=== PATIENT | female | born 1955 | race Caucasian/White ===

== ENCOUNTER 2019-11-15 13:58 | Outpatient (CLI) | payer MEDICARE, SELFPAY ==
[2019-11-15 15:32] LABS: Hematocrit 41.7 % (37.0-47.0); Hemoglobin 14.3 g/dL (12.0-15.0); Mean Corpuscular HGB Conc 34.3 g/dl (32-36); Mean Corpuscular Hemoglobin 30.2 pg (26-34); Mean Corpuscular Volume 88.2 fl (80-100); Mean Platelet Volume 10.9 fl (7.4-10.4); Platelet Count Result 238 k/mm3 (150-375); Red Blood Count 4.73 M/mm3 (4.2-5.4); Red Cell Distribution Width 12.1 % (11.5-14.5); White Blood Count 8.4 K/mm3 (4.5-10.0)
[2019-11-15 15:55] LABS: LDL Cholesterol Direct 112 mg/dL
[2019-11-15 16:15] LABS: Alanine Aminotransferase 64 U/L (4-35); Albumin Level 4.6 g/dL (3.5-5.1); Alkaline Phosphatase 98 U/L (38-126); Aspartate Amino Transferase 93 U/L (14-36); Bilirubin,Total 0.5 mg/dL (0.2-1.3); Blood Urea Nitrogen 19 mg/dL (7-17); Carbon Dioxide 23 mmol/L (22-30); Chloride 101 mmol/L (98-107); Cholesterol 255 mg/dL (0-200); Estimated Glomerular Filt Rate 50; Glucose 266 mg/dL (65-105); Potassium 4.3 mmol/L (3.4-5.0); Sodium 135 mmol/L (137-145)
[2019-11-15 16:30] LABS: Triglycerides 645 mg/dL (<150)
[2019-11-15 18:40] LABS: Hemoglobin A1C 9.2 % (<5.7)
== END 2019-11-15 13:59 | disposition home or self-care (01) ==
PROVIDERS: PCP Family Medicine; Visit Provider Family Medicine
DX: R53.83 Other fatigue (principal); L08.9 Local infection of the skin and subcutaneous tissue, unspecified; I10 Essential (primary) hypertension; E11.9 Type 2 diabetes mellitus without complications; E78.2 Mixed hyperlipidemia
CPT/HCPCS: 36415; 80053; 80061; 83036; 84443; 85027

== ENCOUNTER 2020-08-26 09:37 | Outpatient (CLI) | payer MEDICARE, SELFPAY ==
[2020-08-26 10:13] LABS: Hemoglobin A1C 7.1 % (<5.7)
[2020-08-26 10:18] LABS: Alanine Aminotransferase 48 U/L (4-35); Albumin Level 4.4 g/dL (3.5-5.1); Alkaline Phosphatase 55 U/L (38-126); Anion Gap 7 mmol/L (8-16); Aspartate Amino Transferase 51 U/L (14-36); Bilirubin,Total 0.4 mg/dL (0.2-1.3); Blood Urea Nitrogen 33 mg/dL (7-17); Calcium 9.9 mg/dL (8.4-10.2); Carbon Dioxide 27 mmol/L (22-30); Chloride 106 mmol/L (98-107); Cholesterol 223 mg/dL (0-200); Estimated Glomerular Filt Rate 45; Glucose 152 mg/dL (65-105); HDL Direct 29 mg/dL; Potassium 4.4 mmol/L (3.4-5.0); Sodium 140 mmol/L (137-145); Triglycerides 359 mg/dL (<150)
[2020-08-26 10:28] LABS: LDL Cholesterol Direct 138 mg/dL
== END 2020-08-26 09:38 | disposition home or self-care (01) ==
PROVIDERS: PCP Family Medicine; Visit Provider Family Medicine
DX: E78.2 Mixed hyperlipidemia (principal); E11.9 Type 2 diabetes mellitus without complications; Z79.4 Long term (current) use of insulin; I10 Essential (primary) hypertension
CPT/HCPCS: 36415; 80053; 80061; 83036

== ENCOUNTER 2021-01-06 15:58 | Outpatient (CLI) | payer MEDICARE, SELFPAY ==
[2021-01-06 16:32] LABS: Hemoglobin A1C 8.7 % (<5.7)
[2021-01-06 16:35] LABS: Alanine Aminotransferase 70 U/L (4-35); Albumin Level 4.8 g/dL (3.5-5.1); Alkaline Phosphatase 90 U/L (38-126); Anion Gap 12 mmol/L (8-16); Aspartate Amino Transferase 85 U/L (14-36); Bilirubin,Total 0.5 mg/dL (0.2-1.3); Blood Urea Nitrogen 27 mg/dL (7-17); Calcium 10.7 mg/dL (8.4-10.2); Carbon Dioxide 25 mmol/L (22-30); Chloride 99 mmol/L (98-107); Estimated Glomerular Filt Rate 50; Glucose 276 mg/dL (65-105); Potassium 5.4 mmol/L (3.4-5.0); Sodium 136 mmol/L (137-145)
== END 2021-01-06 15:59 | disposition home or self-care (01) ==
LOC: ANHLAB 16:01
PROVIDERS: PCP Family Medicine; Visit Provider Family Medicine
DX: E11.9 Type 2 diabetes mellitus without complications (principal); I10 Essential (primary) hypertension; Z79.4 Long term (current) use of insulin
CPT/HCPCS: 36415; 80053; 83036

== ENCOUNTER 2021-02-18 00:30 | Day surgery (SDC) | payer MEDICARE, SELFPAY ==
[2021-02-09 13:20] VITALS: BMI 40.3
[2021-02-18 09:14] VITALS: BP 176/79; PULSE 99; RESP 16; TEMP 36.4; O2SAT 95; BMI 39.5
--- NOTE | 2021-02-18 09:31 | WPDANESEPPF ---
Anes - Initial Pre Proc Eval Procedure: Operation Date: 02/18/21 10:00 Proposed Procedures p Screening Colonoscopy - Rodolfo London MD Date/Time: 02/18/21 09:31 Surgeon: Rodolfo London MD Pre Op Diagnosis: hx of colon polyps Patient Data Age: 65 Gender: F Height: 1.57 m Weight: 98 kg Last Vital Signs Temp 36.4 C 02/18/21 09:14 Pulse 99 02/18/21 09:14 Resp 16 02/18/21 09:14 BP 176/79 H 02/18/21 09:14 Pulse Ox 95 02/18/21 09:14 Allergies Allergy/AdvReac Type Severity Reaction Status Date / Time No Known Allergies Allergy Verified 02/18/21 09:12 Home Medications Medication Instructions Recorded Confirmed Type aspirin 325 mg tablet 325 mg PO DAILY 05/23/19 02/09/21 History cholecalciferol (vitamin D3) 100 4,000 unit PO DAILY #90 cap 09/26/19 02/09/21 Rx mcg (4,000 unit) capsule cyclobenzaprine 10 mg tablet 10 mg PO TID PRN #270 tablet 08/26/20 02/09/21 Rx pantoprazole 40 mg tablet,delayed 40 mg PO QAM #90 tablet 10/06/20 02/09/21 Rx release pen needle, diabetic 32 gauge x #100 each 10/29/20 Rx fenofibrate nanocrystallized 145 145 mg PO DAILY #90 tablet 11/10/20 02/09/21 Rx mg tablet meloxicam 15 mg tablet 15 mg PO DAILY #90 tablet 11/10/20 02/09/21 Rx lisinopril 10 mg tablet 10 mg PO DAILY #90 tablet 12/08/20 02/09/21 Rx blood sugar diagnostic See Rx Instructions .ROUTE 12/21/20 Rx .COMPLEX #300 strip gabapentin 300 mg capsule 300 mg PO DAILY #90 cap 01/04/21 02/09/21 Rx allopurinol 300 mg tablet 300 mg PO DAILY #90 tablet 01/29/21 02/09/21 Rx insulin glargine [Basaglar KwikPen 100 unit SUB-Q DAILY 02/09/21 02/18/21 History U-100 Insulin] mecobalamin (vitamin B12) 1,000 mcg PO DAILY 02/09/21 02/09/21 History omega-3 fatty acids [Fish Oil] 1,000 mg PO DAILY 02/09/21 02/09/21 History Patient hx anesthesia problems: none Family hx anesthesia problems: none PMFSH Past Medical History Medical History Colon polyp Diabetes mellitus with diabetic neuropathy Essential hypertension FH: colon cancer H/O: gout History of left breast cancer Lumbar disc disease Lymphedema of left upper extremity Obesity (BMI 30-39.9) Obstructive sleep apnea syndrome Other hyperlipidemia Type 2 diabetes mellitus without complication, with long-term current use of insulin Vision disturbance Vitamin deficiency, unspecified Surgical History Surgical History (Updated 01/07/21 @ 17:20 by Ericka Colon MD) History of mastectomy, total Family History Family History Sibling Hypertension Carcinoma of colon Father Family history of malignant neoplasm Family history of alcoholism Mother Family history of malignant neoplasm of brain Family history of malignant neoplasm of breast in first degree relative Social History Social History Years smoked: 58 Smoking status: Current every day smoker Tobacco type: cigarettes Second hand tobacco smoke exposure: No Alcohol intake: current Substance use: never Substance use type: does not use Living arrangements: alone Gender identity (if verbalized by the patient): Female Spiritual care concerns: No Anes - Eval Final PreProcedure Day of Procedure 02/18/21 09:31 Patient weight: obese Heart: regular rate and rhythm Lungs: clear to auscultation Airway: Mallampati scale class II Neurological: alert and oriented Last oral intake: >/= 8 hours ASA classification: III Emergent: no Anesthetic plan: proceed Anesthesia type and monitoring: general GIVS and standard monitoring Informed Consent: The patient's anesthetic plan and its attendant risks and benefits were discussed with the patient/family/POA. Questions were solicited and answers provided to the satisfaction of the patient/family/POA.
[2021-02-18 09:36] LABS: Glucose Point of Care 180 mg/dl (65-105)
[2021-02-18] MEDS: LACTATED RINGERS 1,000 ML 150 ML IV CONT (09:36)
--- NOTE | 2021-02-18 09:47 | PM.HPGS ---
History of Present Illness History of Present Illness Consent: Risks, benefits, and alternatives have been discussed and questions answered. Patient agrees to proceed with procedure. Chief complaint: hx of colon polyps Narrative: Penelope Lucio is a 65 year old female here for colon cancer screening. Review of Systems Review of Systems: All systems reviewed & are unremarkable except as noted in HPI and below PMFSH Past Medical History Medical History Colon polyp Diabetes mellitus with diabetic neuropathy Essential hypertension FH: colon cancer H/O: gout History of left breast cancer Lumbar disc disease Lymphedema of left upper extremity Obesity (BMI 30-39.9) Obstructive sleep apnea syndrome Other hyperlipidemia Type 2 diabetes mellitus without complication, with long-term current use of insulin Vision disturbance Vitamin deficiency, unspecified Surgical History Surgical History History of mastectomy, total Family History Family History Sibling Hypertension Carcinoma of colon Father Family history of malignant neoplasm Family history of alcoholism Mother Family history of malignant neoplasm of brain Family history of malignant neoplasm of breast in first degree relative Social History Social History Years smoked: 58 Smoking status: Current every day smoker Tobacco type: cigarettes Second hand tobacco smoke exposure: No Alcohol intake: current Substance use: never Substance use type: does not use Living arrangements: alone Gender identity (if verbalized by the patient): Female Spiritual care concerns: No Meds Home Medications and Allergies Home Medications Medication Instructions Recorded Confirmed Type aspirin 325 mg tablet 325 mg PO DAILY 05/23/19 02/09/21 History cholecalciferol (vitamin D3) 100 4,000 unit PO DAILY #90 cap 09/26/19 02/09/21 Rx mcg (4,000 unit) capsule cyclobenzaprine 10 mg tablet 10 mg PO TID PRN #270 tablet 08/26/20 02/09/21 Rx pantoprazole 40 mg tablet,delayed 40 mg PO QAM #90 tablet 10/06/20 02/09/21 Rx release pen needle, diabetic 32 gauge x #100 each 10/29/20 Rx fenofibrate nanocrystallized 145 145 mg PO DAILY #90 tablet 11/10/20 02/09/21 Rx mg tablet meloxicam 15 mg tablet 15 mg PO DAILY #90 tablet 11/10/20 02/09/21 Rx lisinopril 10 mg tablet 10 mg PO DAILY #90 tablet 12/08/20 02/09/21 Rx blood sugar diagnostic See Rx Instructions .ROUTE 12/21/20 Rx .COMPLEX #300 strip gabapentin 300 mg capsule 300 mg PO DAILY #90 cap 01/04/21 02/09/21 Rx allopurinol 300 mg tablet 300 mg PO DAILY #90 tablet 01/29/21 02/09/21 Rx insulin glargine [Basaglar KwikPen 100 unit SUB-Q DAILY 02/09/21 02/18/21 History U-100 Insulin] mecobalamin (vitamin B12) 1,000 mcg PO DAILY 02/09/21 02/09/21 History omega-3 fatty acids [Fish Oil] 1,000 mg PO DAILY 02/09/21 02/09/21 History Allergies Allergy/AdvReac Type Severity Reaction Status Date / Time No Known Allergies Allergy Verified 02/18/21 09:12 Vital Signs Vital Signs - 24 hr 02/18/21 09:14 Temperature 36.4 C Pulse Rate 99 Respiratory Rate 16 Blood Pressure 176/79 H Pulse Oximetry 95 Exam Resp: Auscultation: clear to auscultation bilaterally Cardio: Rate: regular rate Rhythm: regular rhythm GI: GI Palp: Yes Soft to palpation and No Tenderness to palpation present (GI) Assessment and Plan Assessment and plan (1) FH: colon cancer: Code(s): Z80.0 - Family history of malignant neoplasm of digestive organs Status: Acute Assessment and Plan: Colonoscopy with possible biopsy or polypectomy or cautery or injection of substances.
--- NOTE | 2021-02-18 10:22 | SUR.OPER ---
PREPARED TO HOT SNARE POLYP, DECIDED AGAINST. NO ELECTROCAUTERY USED.
[2021-02-18 10:24] VITALS: BP 94/53; PULSE 93; RESP 24; O2SAT 98
[2021-02-18 10:34] VITALS: BP 112/50; PULSE 91; RESP 22; O2SAT 98
[2021-02-18 10:38] LABS: Glucose Point of Care 189 mg/dl (65-105)
[2021-02-18 10:44] VITALS: BP 126/71; PULSE 93; RESP 24; O2SAT 95
== END 2021-02-18 11:10 | disposition home or self-care (01) ==
PROVIDERS: PCP Family Medicine; Visit Provider Internal Medicine Gastroenterology
PROC: 0DJD8ZZ Inspection of Lower Intestinal Tract, Via Natural or Artificial Opening Endoscopic (ICD-10-PCS; CPT 45378; principal; 2021-02-18 10:00)
DX: Z12.11 Encounter for screening for malignant neoplasm of colon (principal); K62.1 Rectal polyp; K63.5 Polyp of colon; K57.30 Diverticulosis of large intestine without perforation or abscess without bleeding; Z80.0 Family history of malignant neoplasm of digestive organs; Z79.82 Long term (current) use of aspirin; Z79.4 Long term (current) use of insulin; E11.40 Type 2 diabetes mellitus with diabetic neuropathy, unspecified; I10 Essential (primary) hypertension; G47.33 Obstructive sleep apnea (adult) (pediatric); E78.5 Hyperlipidemia, unspecified; Z85.3 Personal history of malignant neoplasm of breast; M51.36 Other intervertebral disc degeneration, lumbar region; E66.9 Obesity, unspecified; Z68.39 Body mass index [BMI] 39.0-39.9, adult; F17.210 Nicotine dependence, cigarettes, uncomplicated
CPT/HCPCS: 45380; 82948; 88305; J2704; J7120

== ENCOUNTER 2021-06-11 12:53 | Outpatient (CLI) | payer MEDICARE, SELFPAY ==
[2021-06-11 14:10] LABS: Alanine Aminotransferase 49 U/L (4-35); Albumin Level 4.6 g/dL (3.5-5.1); Alkaline Phosphatase 77 U/L (38-126); Anion Gap 10 mmol/L (8-16); Aspartate Amino Transferase 45 U/L (14-36); Bilirubin,Total 0.4 mg/dL (0.2-1.3); Blood Urea Nitrogen 23 mg/dL (7-17); Carbon Dioxide 23 mmol/L (22-30); Chloride 101 mmol/L (98-107); Cholesterol 255 mg/dL (0-200); Estimated Glomerular Filt Rate > 60; Glucose 203 mg/dL (65-110); HDL Direct 29 mg/dL; Potassium 4.4 mmol/L (3.4-5.0); Sodium 134 mmol/L (137-145); Triglycerides 408 mg/dL (<150)
[2021-06-11 14:21] LABS: LDL Cholesterol Direct 146 mg/dL
[2021-06-11 14:23] LABS: Hemoglobin A1C 7.8 % (<5.7)
== END 2021-06-11 12:54 | disposition home or self-care (01) ==
PROVIDERS: PCP Family Medicine; Visit Provider Family Medicine
DX: E11.9 Type 2 diabetes mellitus without complications (principal); I10 Essential (primary) hypertension; E78.2 Mixed hyperlipidemia
CPT/HCPCS: 36415; 80053; 80061; 83036

== ENCOUNTER 2021-10-26 12:00 | Outpatient (CLI) | payer MEDICARE, SELFPAY ==
[2021-10-26 14:17] LABS: Alanine Aminotransferase 49 U/L (4-35); Albumin Level 4.2 g/dL (3.5-5.1); Alkaline Phosphatase 57 U/L (38-126); Anion Gap 8 mmol/L (8-16); Aspartate Amino Transferase 56 U/L (14-36); Bilirubin,Total 0.4 mg/dL (0.2-1.3); Blood Urea Nitrogen 22 mg/dL (7-17); Calcium 9.2 mg/dL (8.4-10.2); Carbon Dioxide 23 mmol/L (22-30); Chloride 106 mmol/L (98-107); Cholesterol 246 mg/dL (0-200); Estimated Glomerular Filt Rate 55; Glucose 133 mg/dL (65-110); HDL Direct 29 mg/dL; Potassium 4.3 mmol/L (3.4-5.0); Sodium 137 mmol/L (137-145); Triglycerides 327 mg/dL (<150)
[2021-10-26 14:29] LABS: LDL Cholesterol Direct 138 mg/dL
[2021-10-26 14:42] LABS: Hemoglobin A1C 6.3 % (<5.7)
== END 2021-10-26 12:01 | disposition home or self-care (01) ==
PROVIDERS: PCP Family Medicine; Visit Provider Physician Assistant
DX: E78.5 Hyperlipidemia, unspecified (principal); E11.9 Type 2 diabetes mellitus without complications; I10 Essential (primary) hypertension
CPT/HCPCS: 36415; 80053; 80061; 83036

== ENCOUNTER 2022-05-26 14:04 | Outpatient (CLI) | payer MEDICARE, SELFPAY ==
[2022-05-26 14:25] LABS: Basophils Absolute Auto 0.1 K/mm3 (0.0-0.1); Basophils Percent Auto 0.9 % (0.2-1.2); Eosinophils Absolute Auto 0.4 K/mm3 (0-0.3); Eosinophils Percent Auto 5.6 % (0-4.4); Hematocrit 41.8 % (37.0-47.0); Hemoglobin 13.8 g/dL (12.0-15.0); Immature Granulocyte Absolute 0.08 K/mm3 (0.00-0.031); Immature Granulocyte Percent A 1.1 % (0-0.5); Lymphocytes Absolute Auto 2.05 K/mm3 (0.9-3.2); Lymphocytes Percent Auto 29.3 % (18.3-44.2); Mean Corpuscular Hemoglobin 30.3 pg (26-34); Mean Corpuscular Volume 91.9 fl (80-100); Mean Platelet Volume 10.7 fl (7.4-10.4); Monocytes Absolute Auto 0.4 K/mm3 (0.1-0.6); Monocytes Percent Auto 6.3 % (2.6-8.5); Neutrophils Percent Auto 56.8 % (45.5-73.1); Platelet Count Result 161 k/mm3 (150-375); Red Blood Count 4.55 M/mm3 (4.2-5.4); Red Cell Distribution Width 13.1 % (11.5-14.5)
[2022-05-26 14:37] LABS: Alanine Aminotransferase 58 U/L (6-35); Albumin Level 4.3 g/dL (3.5-5.1); Alkaline Phosphatase 61 U/L (38-126); Anion Gap 5 mmol/L (8-16); Aspartate Amino Transferase 71 U/L (14-36); Bilirubin,Total 0.3 mg/dL (0.2-1.3); Blood Urea Nitrogen 23 mg/dL (7-17); Calcium 9.2 mg/dL (8.4-10.2); Carbon Dioxide 27 mmol/L (22-30); Chloride 105 mmol/L (98-107); Cholesterol 225 mg/dL (0-200); Estimated Glomerular Filt Rate 50; Glucose 177 mg/dL (65-110); HDL Direct 29 mg/dL; Potassium 4.6 mmol/L (3.4-5.0); Sodium 137 mmol/L (137-145); Triglycerides 365 mg/dL (<150)
[2022-05-26 14:46] LABS: Creatinine Urine 54.8 mg/dL
[2022-05-26 14:48] LABS: LDL Cholesterol Direct 119 mg/dL
[2022-05-26 14:54] LABS: MALB Creatinine Ratio < 10.9 mg/g (0-30); Microalbumin Urine Random < 6.0 mg/L (0-16.7)
[2022-05-26 14:58] LABS: Hemoglobin A1C 7.1 % (<5.7)
== END 2022-05-26 14:05 | disposition home or self-care (01) ==
LOC: ANHLAB 14:06
PROVIDERS: PCP Family Medicine; Visit Provider Family Medicine
DX: R53.83 Other fatigue (principal); E11.9 Type 2 diabetes mellitus without complications; E78.2 Mixed hyperlipidemia
CPT/HCPCS: 36415; 80053; 80061; 82043; 83036; 85025

== ENCOUNTER 2022-08-13 14:04 | Outpatient (CLI) | payer MEDICARE, SELFPAY ==
--- NOTE | ~2022-08-13 | XR_ITS ---
EXAMINATION: XR chest 2V 08/13/2022 14:37 INDICATION: Cough. PROCEDURE: 2 view chest COMPARISON: 09/08/2016 FINDINGS: The lungs are clear. The cardiomediastinal silhouette is within normal limits. There are no pleural effusions. There is no pneumothorax suspected. There is a calcified granuloma in the rig ht mid thorax. IMPRESSION: 1: NO ACUTE CARDIOPULMONARY DISEASE. Reviewed, dictated and finalized at location A. N PAINTER
--- NOTE | ~2022-08-13 | XR_ITS ---
EXAMINATION: XR abdomen obstructive series DATE: 08/13/2022 14:36 INDICATION: Unspecified abdominal pain TECHNIQUE: Supine and upright views of the abdomen. FINDINGS: 05/01/2014 The visualized lung parenchyma is normal.. There is a nonobstructive bowel gas pattern. Gas and stool are seen throughout the colon to the level of the rectum. There is no free air. IMPRESSION: 1. No acute abdominal abnormality. Reviewed, dictated and finalized at location A. L CARRIER
[2022-08-13 13:46] LABS: Influenza A QL RT-PCR Negative (Negative); Influenza B QL RT-PCR Negative (Negative); RSV RNA, RT-PCR Negative (Negative); SARS-CoV-2 RNA PCR Negative
[2022-08-13 14:32] LABS: Hematocrit 42.4 % (37.0-47.0); Hemoglobin 14.4 g/dL (12.0-15.0); Mean Corpuscular Hemoglobin 30.2 pg (26-34); Mean Corpuscular Volume 88.9 fl (80-100); Platelet Count Result 153 k/mm3 (150-375); Red Blood Count 4.77 M/mm3 (4.2-5.4); Red Cell Distribution Width 12.8 % (11.5-14.5); White Blood Count 9.2 K/mm3 (4.5-10.0)
[2022-08-13 14:34] LABS: Appearance Urine Slightly Cloudy (Clear); Bilirubin Urine 1+ (Negative); Blood Urine Trace-lysed (Negative); Color Urine Yellow (Yellow); Glucose Urine UA Negative (Negative); Ketones Urine Negative (Negative); Leukocyte Esterase Ur 1+ LEU/UL (Negative); Nitrate Urine Negative (Negative); Protein Urine 2+ mg/dL (Negative); Specific Grav Ur 1.025 (1.001-1.035); Urobilinogen Urine 0.2 mg/dL (<2.0); pH Urine 5.5 (5.0-9.0)
[2022-08-13 14:40] LABS: Mucus Urine Few /lpf; Squamous Epithelial Cell Urine Rare /hpf (Few); WBC Urine >75 /hpf
[2022-08-13 14:45] LABS: Alanine Aminotransferase 48 U/L (6-35); Albumin Level 4.6 g/dL (3.5-5.1); Alkaline Phosphatase 72 U/L (38-126); Anion Gap 10 mmol/L (8-16); Aspartate Amino Transferase 43 U/L (14-36); Bilirubin,Total 0.8 mg/dL (0.2-1.3); Blood Urea Nitrogen 20 mg/dL (7-17); Calcium 9.4 mg/dL (8.4-10.2); Carbon Dioxide 25 mmol/L (22-30); Chloride 100 mmol/L (98-107); Estimated Glomerular Filt Rate 37; Glucose 108 mg/dL (65-110); Lipase 36 U/L (23-300); Potassium 4.2 mmol/L (3.4-5.0); Sodium 135 mmol/L (137-145)
[2022-08-13 14:46] LABS: Add Urine Microscopic? YES
== END 2022-08-13 14:05 | disposition home or self-care (01) ==
PROVIDERS: Physician Assistant; PCP Family Medicine; Visit Provider Family Medicine
DX: J06.9 Acute upper respiratory infection, unspecified (principal); R10.9 Unspecified abdominal pain; R05.9 Cough, unspecified
CPT/HCPCS: 36415; 71046; 74019; 80053; 81001; 83690; 85027; 87086; 87637

== ENCOUNTER 2022-10-26 14:32 | Outpatient (CLI) | payer MEDICARE, SELFPAY ==
[2022-10-26 16:36] LABS: Alanine Aminotransferase 51 U/L (6-35); Albumin Level 4.3 g/dL (3.5-5.1); Alkaline Phosphatase 58 U/L (38-126); Anion Gap 8 mmol/L (8-16); Aspartate Amino Transferase 58 U/L (14-36); Bilirubin,Total 0.5 mg/dL (0.2-1.3); Blood Urea Nitrogen 26 mg/dL (7-17); Calcium 9.7 mg/dL (8.4-10.2); Carbon Dioxide 25 mmol/L (22-30); Chloride 105 mmol/L (98-107); Estimated Glomerular Filt Rate 55; Glucose 167 mg/dL (65-110); Sodium 138 mmol/L (137-145)
[2022-10-26 17:00] LABS: Hemoglobin A1C 7.8 % (<5.7)
== END 2022-10-26 14:33 | disposition home or self-care (01) ==
LOC: ANHLAB 14:35
PROVIDERS: PCP Family Medicine; Visit Provider Family Medicine
DX: E11.9 Type 2 diabetes mellitus without complications (principal)
CPT/HCPCS: 36415; 80053; 83036

== ENCOUNTER 2022-12-18 10:15 | Outpatient (CLI) | payer MEDICARE, SELFPAY ==
--- NOTE | ~2022-12-18 | DEXA_ITS ---
Bone Density Report Name: EUSEBIA GUEVARA Age: 67 Sex: Female Ethnicity: White Date of : 1955 Indication: postmenopausal; screening for osteoporosis; prior fracture; cancer; hysterectomy; Referring Provider: MARGARET LINDSEY Study: Bone densitometry was performed. Exam Date: December 18, 2022 Accession number: [id number] Bone Density: Region BMD T-score Z-score Classification AP Spine(L1-L4) 1.046 0.0 2.0 Normal Femoral Neck (Left) 0.721 -1.2 0.6 Osteopenia Total Hip (Left) 1.029 0.7 2.1 Normal Femoral Neck (Right) 0.719 -1.2 0.5 Osteopenia Total Hip (Right) 0.997 0.4 1.9 Normal Total Hip Mean 1.013 0.6 2.0 Normal World Health Organization criteria for BMD impression classify patients as: Normal (T-score at or above -1.0), Osteopenia (T-score between -1.0 and -2.5), or Osteoporosis (T-score at or below -2.5). 10-year Fracture Risk(1): Major Osteoporotic Fracture 13% Hip Fracture 2.1% Reported Risk Factors: [place] (), Neck BMD=0.719, BMI=38.9, previous fracture, smoking (1) FRAX(R) Version 3.08. Fracture probability calculated for an untreated patient. Fracture probability may be lower if the patient has received treatment. Clinical Information Provided by Patient: Has had a low trauma fracture Smokes Has used the following medications: Vitamin D Has the following medical conditions: Cancer, Hysterectomy Patient maximum height was 62 Menopause Age: 54 No regular weight bearing exercise Drinks caffeinated beverages Onset of menses at age 11 Number of children 0 Impression: The patient has low bone mass, based on the Left Femoral Neck T-score. The patient has an estimated ten-year risk of hip fracture of 2.1% and an estimated ten-year risk of major fracture of 13%, based on the WHO FRAX algorithm. The patient has risk factors, including: smoking, previous fracture. Discussion: BONE DENSITY IS LOW AT ONE OR MORE SKELETAL SITES. This patient's lowest T-score is low at one or more skeletal sites. It meets the World Health Organization's (WHO) criteria for ?low bone mass? (T-score between -1.0 and -2.5). The patient's 10-year risk of fracture as calculated by FRAX is less than the threshold where pharmacological therapy is recommended by the National Osteoporosis Foundation (NOF). However, all treatment decisions require clinical judgment and consideration of individual patient factors, including patient preferences, comorbidities, previous drug use, risk factors not captured in the FRAX model (e.g., frailty, falls, vitamin D deficiency, increased bone turnover, interval significant decline in bone density) and possible under or overestimation of fracture risk by FRAX. The patient should follow a healthful lifestyle (good nutrition with adequate calcium and vitami
== END 2022-12-18 10:16 | disposition home or self-care (01) ==
LOC: ANHIMG 10:17
PROVIDERS: PCP Family Medicine; Visit Provider Family Medicine
DX: Z78.0 Asymptomatic menopausal state (principal); M85.852 Other specified disorders of bone density and structure, left thigh; M85.851 Other specified disorders of bone density and structure, right thigh
CPT/HCPCS: 77080

== ENCOUNTER 2023-05-11 15:13 | Outpatient (CLI) | payer MEDICARE, SELFPAY ==
[2023-05-11 16:12] LABS: Basophils Percent Auto 0.7 % (0.2-1.2); Eosinophils Absolute Auto 0.3 K/mm3 (0-0.3); Eosinophils Percent Auto 4.5 % (0-4.4); Hematocrit 41.1 % (37.0-47.0); Hemoglobin 13.3 g/dL (12.0-15.0); Immature Granulocyte Absolute 0.04 K/mm3 (0.00-0.031); Immature Granulocyte Percent A 0.7 % (0-0.5); Lymphocytes Absolute Auto 1.88 K/mm3 (0.9-3.2); Lymphocytes Percent Auto 31.5 % (18.3-44.2); Mean Corpuscular HGB Conc 32.4 g/dl (32-36); Mean Corpuscular Hemoglobin 29.2 pg (26-34); Mean Corpuscular Volume 90.3 fl (80-100); Mean Platelet Volume 11.4 fl (7.4-10.4); Monocytes Absolute Auto 0.4 K/mm3 (0.1-0.6); Monocytes Percent Auto 6.5 % (2.6-8.5); Neutrophils Absolute Auto 3.4 K/mm3 (1.3-6.7); Neutrophils Percent Auto 56.1 % (45.5-73.1); Platelet Count Result 144 k/mm3 (150-375); Red Blood Count 4.55 M/mm3 (4.2-5.4); Red Cell Distribution Width 12.8 % (11.5-14.5)
[2023-05-11 16:18] LABS: Appearance Urine Clear (Clear); Bacteria Urine None Seen /hpf; Bilirubin Urine Negative (Negative); Blood Urine Negative (Negative); Color Urine Yellow (Yellow); Glucose Urine UA Negative (Negative); Ketones Urine Negative (Negative); Leukocyte Esterase Ur 2+ LEU/UL (Negative); Nitrate Urine Negative (Negative); Non Pathogenic Casts 0-2; Protein Urine Negative (Negative); RBC Urine 0-2 /hpf (0-2); Specific Grav Ur 1.015 (1.001-1.035); Squamous Epithelial Cell Urine None seen /hpf (Few); pH Urine 6.5 (5.0-9.0)
[2023-05-11 16:26] LABS: Add Urine Microscopic? YES
[2023-05-11 16:31] LABS: Alanine Aminotransferase 50 U/L (6-35); Albumin Level 4.3 g/dL (3.5-5.1); Alkaline Phosphatase 63 U/L (38-126); Anion Gap 12 mmol/L (8-16); Aspartate Amino Transferase 59 U/L (14-36); Bilirubin,Total 0.4 mg/dL (0.2-1.3); Blood Urea Nitrogen 27 mg/dL (7-17); Calcium 9.7 mg/dL (8.4-10.2); Carbon Dioxide 22 mmol/L (22-30); Chloride 105 mmol/L (98-107); Cholesterol 193 mg/dL (0-200); Estimated Glomerular Filt Rate > 60; Glucose 205 mg/dL (65-110); HDL Direct 31 mg/dL; Potassium 4.4 mmol/L (3.4-5.0); Sodium 139 mmol/L (137-145); Triglycerides 340 mg/dL (<150)
[2023-05-11 16:42] LABS: LDL Cholesterol Direct 104 mg/dL
[2023-05-11 17:01] LABS: Hemoglobin A1C 6.7 % (<5.7)
[2023-05-11 17:47] LABS: Hepatitis C Virus Antibody Negative (Negative)
== END 2023-05-11 15:14 | disposition home or self-care (01) ==
PROVIDERS: PCP Family Medicine; Visit Provider Family Medicine
DX: E78.2 Mixed hyperlipidemia (principal); R31.9 Hematuria, unspecified; E11.9 Type 2 diabetes mellitus without complications; R53.83 Other fatigue; Z11.59 Encounter for screening for other viral diseases; Z85.3 Personal history of malignant neoplasm of breast
CPT/HCPCS: 36415; 80053; 80061; 81001; 83036; 84443; 85025; 86803; 87086; 87088

== ENCOUNTER 2023-12-28 11:15 | Outpatient (CLI) | payer MEDICARE, SELFPAY ==
[2023-12-28 11:49] LABS: Basophils Percent Auto 0.6 % (0.2-1.2); Eosinophils Absolute Auto 0.2 K/mm3 (0-0.3); Eosinophils Percent Auto 3.1 % (0-4.4); Hematocrit 41.2 % (37.0-47.0); Hemoglobin 13.7 g/dL (12.0-15.0); Immature Granulocyte Absolute 0.06 K/mm3 (0.00-0.031); Immature Granulocyte Percent A 0.8 % (0-0.5); Lymphocytes Absolute Auto 2.43 K/mm3 (0.9-3.2); Mean Corpuscular HGB Conc 33.3 g/dl (32-36); Mean Corpuscular Hemoglobin 29.8 pg (26-34); Mean Corpuscular Volume 89.6 fl (80-100); Mean Platelet Volume 10.9 fl (7.4-10.4); Monocytes Absolute Auto 0.5 K/mm3 (0.1-0.6); Monocytes Percent Auto 6.6 % (2.6-8.5); Neutrophils Absolute Auto 3.9 K/mm3 (1.3-6.7); Neutrophils Percent Auto 54.9 % (45.5-73.1); Platelet Count Result 150 k/mm3 (150-375); Red Cell Distribution Width 12.6 % (11.5-14.5); White Blood Count 7.1 K/mm3 (4.5-10.0)
[2023-12-28 12:02] LABS: Alanine Aminotransferase 55 U/L (6-35); Albumin Level 4.5 g/dL (3.5-5.1); Alkaline Phosphatase 63 U/L (38-126); Anion Gap 8 mmol/L (4-12); Aspartate Amino Transferase 62 U/L (14-36); Bilirubin,Total 0.4 mg/dL (0.2-1.3); Blood Urea Nitrogen 23 mg/dL (7-17); Calcium 9.6 mg/dL (8.4-10.2); Carbon Dioxide 25 mmol/L (22-30); Chloride 105 mmol/L (98-107); Cholesterol 194 mg/dL (0-200); Estimated Glomerular Filt Rate 49; Glucose 173 mg/dL (65-110); HDL Direct 33 mg/dL; Potassium 4.4 mmol/L (3.4-5.0); Sodium 138 mmol/L (137-145); Triglycerides 375 mg/dL (<150)
[2023-12-28 12:13] LABS: LDL Cholesterol Direct 110 mg/dL
[2023-12-28 12:19] LABS: Hemoglobin A1C 7.9 % (<5.7)
[2023-12-28 12:53] LABS: MALB Creatinine Ratio < 10.7 mg/g (0-30); Microalbumin Urine Random < 6.0 mg/L (0-16.7)
[2023-12-28 13:00] LABS: Vitamin D 25 Hydroxy 41.9 ng/mL
[2023-12-28 13:49] LABS: Free T4 Free Thyroxine Reflex 1.48 ng/dL (0.78-2.19)
[2023-12-28 14:38] LABS: Total Triiodothyronine (T3) 1.36 NG/ML (0.97-1.69)
== END 2023-12-28 11:16 | disposition home or self-care (01) ==
LOC: ANHLAB 11:18
PROVIDERS: PCP Family Medicine; Visit Provider Family Medicine
DX: D69.6 Thrombocytopenia, unspecified (principal); R53.83 Other fatigue; E78.2 Mixed hyperlipidemia; E11.9 Type 2 diabetes mellitus without complications; E55.9 Vitamin D deficiency, unspecified
CPT/HCPCS: 36415; 80053; 80061; 82043; 82306; 83036; 84439; 84443; 84480; 85025

== ENCOUNTER 2024-07-23 15:42 | Outpatient (CLI) | payer MEDICARE, SELFPAY ==
--- OUTSIDE RECORDS SUMMARY | 2024-07-23 16:28 | XMS_ITS | Referral Summary ---
Author Organization [facility] Address [address] [place] [address] Care Team Providers Care Metal Box Maker Name Role Phone Ericka Colon MD Primary Care Provider [phone] Source Comments [facility],non-[facility] Affiliates and Associated Physician Practices is amultiple site organization consisting of ambulatory clinics and hospital sitesin [place], [place], [place] and [place]. This disclosure is being madepursuant to the Care Everywhere program and may not contain all information available regarding this patient. Last updated 18.[facility] Social History Tobacco Use Types Packs/Day Years Used Date Smoking Tobacco: Never Assessed Sex and Gender Information Value Date Recorded Sex Assigned at Not on file Gender Identity Not on file Sexual Orientation Not on file Plan of Treatment Not on file Care Teams Metal Box Maker Relationship Specialty Start Date End Date Ericka Colon MD [address] [place] [address] PCP - General 09/16/16
--- OUTSIDE RECORDS SUMMARY | 2024-07-23 16:28 | XMS_ITS | Patient Health Summary ---
Author Organization [facility] Address [address] [place] [address] Care Team Providers Care Coo & Co Founder Name Role Phone Ericka Colon MD Primary Care Provider [phone] Note from [facility],non-owned Affiliates and Associated Physician Practices is amultiple site organization consisting of ambulatory clinics and hospital sitesin [place], [place], [place] and [place]. This disclosure is being madepursuant to the Care Everywhere program and may not contain all information available regarding this patient. Last updated 18.[facility] Social History Tobacco Use Types Packs/Day Years Used Date Smoking Tobacco: Never Assessed Sex and Gender Information Value Date Recorded Sex Assigned at Not on file Gender Identity Not on file Sexual Orientation Not on file Procedures * MRI BREAST BILAT [facility] CONTRAST(Performed 05/03/2013) * CREATININE BLOOD - POCT (IP) [facility](Performed 05/03/2013) Results * MRI BREAST BILAT [facility]WO CONTRAST (05/03/2013 12:29 PM DIABETES CLINICAL MANAGER) Anatomical Region Laterality Modality Breast Bilateral Other Addenda Addendum by Yehuda Gongora MD on 05/10/2013 4:24 PM DIABETES CLINICAL MANAGER ADDENDUM: An addendum is being issued to this original report, as the formal pathology report from [facility] has now been made available. The pathology report from the left breast lumpectomy is reported invasive ductal carcinoma, moderately differentiated. The lumpectomy specimen also demonstrated positive margins on its superior, deep, and inferior aspects. 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 All imaging findings from the original report have been described below and are unchanged with the following exception. The small nodular enhancing components of the rim of the lumpectomy site/seroma (predominantly along its medial, posterior, and inferior aspects) likely represent residual tumor, given the additional information provided in this pathology report. Postoperative changes may also give this appearance, but are thought to be less likely. Historical Provider MR ORDERABLES * (ABNORMAL) CREATININE BLOOD - POCT (IP) [facility] (05/03/2013) Creatinine POCT 1.57(A) 0.3 - 1.3 mg/dL [facility] eGFR POCT 36(A) 60 ml/min [facility] 05/03/2013 Mariaelena Aceves MD LAB - POINT OF CA RE ORDERABLES [facility] Care Teams Coo & Co Founder Relationship Specialty Start Date End Date Ericka Colon MD [address] [place] [address] PCP - General 09/16/16
--- OUTSIDE RECORDS SUMMARY | 2024-07-23 16:28 | XMS_ITS | Clinical Summary ---
Author Organization [facility] [[email or web address]] [facility] Address [address] [place] [address] Phone Care Team Providers Care Field Machinist Name Role Phone Ericka Colon MD Primary Care Provider [phone] Jevon Colindres MD Unavailable [phone] Allergies No known active allergies Medications meloxicam (MOBIC) 15 mg tablet [address] (PROTONIX) 40 mg EC tablet 2017 Active cyclobenzaprine (FLEXERIL) 5 mg tablet 07/12/2017Cyclobenzapri ne hcl, po solid 5 mg TabletPOPRNCurrent Medication 2017 Active tamoxifen (NOLVADEX) 20 mg tablet 07/12/2017Tamoxifen citrate, po solid 20 mg TabletTAKE 1 TABLET DAILYContinue 2017 Active allopurinol (ZYLOPRIM) 300 mg tablet 07/12/2017Allopurinol, po solid 300 mg TabletTAKE 1 TABLET BY MOUTH DAILY11/22/2013Continue 2013 Active omega 6-rfg-vbm-fish oil (FISH OIL) 100-160-1,000 mg capsule 07/12/2017Fish oil, po solid 300-1000mg CapsulePOdailyCurrent Medication 2017 Active fenofibrate nanocrystallized (TRICOR,TRIGLIDE) 145 mg tablet 2017 Active gabapentin (NEURONTIN) 300 mg capsule Take 300 mg by mouth 3 (three) times a day. Acti ve vit D3-vit U-ehofruych-pswz [id number] nhjn-uud-mp-mg tablet Take by mouth. Activ e Malina EdwardsSanto U-100 Insulin 100 unit/mL (3 mL) insulin pen INJECT 30 UNITS SUBCUTANEOS DAILY 2019 Active diclofenac sodium 1.5 % drops APPLY 40 DROPS TOPICALLY QID TO AFFECTED KNEE 2019 Active Active Problems Problem Noted Date Diagnosed Date Malignant neoplasm of breast 07/08/2015 Ankle swelling 07/08/2015 Muscle pain 07/08/2015 Joint swelling 07/08/2015 Thoracic root lesion 07/08/2015 Chest pain 07/08/2015 Chest wall pain 07/08/2015 Knee pain 07/08/2015 Pain of lower extremity 07/08/2015 Notalgia 07/08/2015 Chronic pain 07/08/2015 Immunizations Name Administration Dates Next Due Influenza, Trivalent, High D ose, Split, Preservative Free, Intramuscular 07/18/2019 Influenza, Unspecified 04/10/2018 Tdap 02/09/2016 ZOSTER LIVE 05/29/2015 Surgical History Surgery Date Site/Laterality Comments BREAST RECONSTRUCTION Breast Reconstruction With Implant Prosthesis - (Added by TW Conv) IN MASTECTOMY SIMPLE COMPLETE Extended Simple Mastectomy - (Added by TW Conv) IN INJ LUMBAR/SACRAL,W/WO CNTRST Corticosteroid Injection Interlaminar Approach Lumbar - (Added by TW Conv) HYSTERECTOMY OOPHORECTOMY COLONOSCOPY Medical History Medical History Date Comments Breast cancer (HCC) Social History Tobacco Use Types Packs/Day Years Used Date Smoking Tobacco: Every Day Cigarettes 0.5 50 Smokeless Tobacco: Never Tobacco Cessation:Ready to Q uit: No; Counseling Given: Yes Alcohol Use Standard Drinks/Week Comments Not Currently 0 (1 standard drink = 0.6 oz pur e alcohol) Personal Safety Answer Date Recorded Getting School Help Needed Not on file 09/08 Comments Unknown Sex and Gender Information Value Date Recorded Sex Assigned at Not on file Legal Sex Female 8:19 PM NURSERY HAND Gender Identity Not on file Sexual Orientation Not on file Obstetrics History Last Filed Vital Signs Vital Sign Reading Time Taken Comments Blood Pressure 97/67 01/10/2020 1:57 PM CDT Pulse 93 01/10/2020 1:57 PM CDT Temperature 36.9 ??C (98.5 ??F) 01/10/2020 1:57 PM CD T Respiratory Rate 18 01/10/2020 1:57 PM CDT Oxygen Saturation 97% 01/10/2020 1:57 PM CDT Inhaled Oxygen Concentration - - Weight 96.6 kg (213 lb) 01/10/2020 1:57 PM CDT Height 157.5 cm (5' 2 ) 01/10/2020 1:57 PM CDT Body Mass Index 38.96 01/10/2020 1:57 PM CDT Plan of Treatment Not on file Insurance AET MEDICARE Care Teams Field Machinist Relationship Specialty Start Date End Date Ericka Colon MD PCP - General Family Medicine 04/11/18 Jevon Colindres MD Medical Oncologist/Stock Grader Hematology and Oncology 10/05/18
--- OUTSIDE RECORDS SUMMARY | 2024-07-23 16:28 | XMS_ITS | Referral Summary ---
Author Organization [facility] Address [address] [place] [address] Phone Care Team Providers Care Coil Winding Machines Set Up Mechanic Name Role Phone Ericka Colon MD Primary Care Provider [phone] Jevon Colindres MD Unavailable [phone] Allergies No known active allergies Medications [...] TABLET BY MOUTH DAILY11/22/2013Continue 2013 Active omega 8-ljd-emr-fish oil (FISH OIL) 100-160-1,000 mg capsule 07/12/2017Fish oil, po solid 300-1000mg CapsulePOdailyCurrent Medication 2017 Active fenofibrate nanocrystallized (TRICOR,TRIGLIDE) 145 mg tablet 2017 Active gabapentin (NEURONTIN) 300 mg capsule Take 300 mg by mouth 3 (three) times a day. Acti ve vit D3-vit Y-pqatsippx-vvsj [id number] dcre-fgr-rv-mg tablet Take by mouth. Activ e Malina Albarran U-100 Insulin 100 unit/mL (3 mL) insulin [...] Unspecified 04/10/2018 Tdap 02/09/2016 ZOSTER LIVE 05/29/2015 Social History Tobacco Use Types Packs/Day Years [...] on file Legal Sex Female 8:19 PM ASSISTANT CHIEF OF POLICE Gender Identity Not on file Sexual Orientation Not on file Last Filed Vital Signs Vital Sign Reading [...] Plan of Treatment Not on file Insurance [employer] MEDICARE Care Teams Coil Winding Machines Set Up Mechanic Relationship Specialty Start Date End Date Ericka Colon MD PCP - General Family Medicine 04/11/18 Jevon Colindres MD Medical Oncologist/Teletype Installer Hematology and Oncology 10/05/18
--- OUTSIDE RECORDS SUMMARY | 2024-07-23 16:28 | XMS_ITS | Clinical Summary ---
Author Organization [facility] Address [address] [place] [address] Care Team Providers Care Tennis Court Attendant Name Role Phone Ericka Colon MD Primary Care Provider [phone] Source Comments [facility],non-owned Affiliates and Associated Physician Practices is amultiple site organization consisting of ambulatory clinics and hospital sitesin [place], [place], [place] and [place]. This disclosure is being madepursuant to the Care Everywhere program and may not contain all information available regarding this patient. Last updated 18.[facility] [employer] Social History Tobacco Use Types Packs/Day Years Used Date Smoking Tobacco: Never Assessed Sex and Gender Information Value Date Recorded Sex Assigned at Not on file Gender Identity Not on file Sexual Orientation Not on file Plan of Treatment Health Maintenance Due Date Last Done Comments BONE DENSITY TESTING 1955 COLOGUARD (AGES 45-75) - COL ON CA SCREENING 1955 COLON MONITORING 1955 COLONOSCOPY - COLON CA SCREENING 1955 CT COLONOGRAPHY - COLON CA SCREENING 1955 Colorectal Cancer Screening 1955 FIT - COLON CA SCREENING 1955 FLEX SIG - COLON CA SCREENING 1955 LIPID TESTING 1955 MAMMOGRAM 1955 HEPATITIS C SCREENING 05/31/1972 DTAP/TDAP/TD VACCINES (1 - Tdap) 1973 PNEUMOCOCCAL VACCINE 50+ (1 of 1 - PCV) 2004 ZOSTER VACCINE (1 of 2) 2004 COVID-19 VACCINE ( - 2023-2 5 season) 2024 INFLUENZA VACCINE (#1) 2024 DEPRESSION SCREENING 06/27/2024 Respiratory Syncytial Virus (RSV) Vaccine Pt: or over 60 yrs (1 - 1-dose 75+ series) 2029 HEPATITIS B VACCINE Aged Out No longe r eligible based on patient's age to complete this topic HIB VACCINE Aged Out No longer eligi ble based on patient's age to complete this topic HPV VACCINE Aged Out No longer eligi ble based on patient's age to complete this topic MENINGOCOCCAL (Group B) VACCINE Aged Out No longer eligible based on patient's age to complete this topic MENINGOCOCCAL VACCINE Aged Out No tres manuela eligible based on patient's age to complete this topic Care Teams Tennis Court Attendant Relationship Specialty Start Date End Date Ericka Colon MD [address] [place] [address] PCP - General 09/16/16
[2024-07-23 16:31] LABS: Basophils Absolute Auto 0.1 K/mm3 (0.0-0.1); Basophils Percent Auto 0.9 % (0.2-1.2); Eosinophils Absolute Auto 0.3 K/mm3 (0-0.3); Eosinophils Percent Auto 4.2 % (0-4.4); Hematocrit 41.8 % (37.0-47.0); Hemoglobin 14.2 g/dL (12.0-15.0); Immature Granulocyte Absolute 0.05 K/mm3 (0.00-0.031); Immature Granulocyte Percent A 0.8 % (0-0.5); Immature Platelet Fraction Pct 6.4 % (0.9-11.2); Lymphocytes Absolute Auto 1.86 K/mm3 (0.9-3.2); Lymphocytes Percent Auto 28.7 % (18.3-44.2); Mean Corpuscular Hemoglobin 29.8 pg (26-34); Mean Corpuscular Volume 87.8 fl (80-100); Mean Platelet Volume 11.3 fl (7.4-10.4); Monocytes Absolute Auto 0.4 K/mm3 (0.1-0.6); Neutrophils Absolute Auto 3.9 K/mm3 (1.3-6.7); Neutrophils Percent Auto 59.4 % (45.5-73.1); Platelet Count Result 127 k/mm3 (150-375); Red Blood Count 4.76 M/mm3 (4.2-5.4); Red Cell Distribution Width 12.3 % (11.5-14.5); White Blood Count 6.5 K/mm3 (4.5-10.0)
[2024-07-23 16:50] LABS: Alanine Aminotransferase 53 U/L (6-35); Albumin Level 4.2 g/dL (3.5-5.1); Alkaline Phosphatase 72 U/L (38-126); Anion Gap 13 mmol/L (4-12); Aspartate Amino Transferase 58 U/L (14-36); Bilirubin,Total 0.7 mg/dL (0.2-1.3); Blood Urea Nitrogen 16 mg/dL (7-17); Calcium 9.4 mg/dL (8.4-10.2); Carbon Dioxide 23 mmol/L (22-30); Chloride 101 mmol/L (98-107); Cholesterol 211 mg/dL (0-200); Estimated Glomerular Filt Rate > 60; Glucose 208 mg/dL (65-110); HDL Direct 31 mg/dL; Potassium 4.8 mmol/L (3.4-5.0); Sodium 137 mmol/L (137-145); Triglycerides 379 mg/dL (<150)
[2024-07-23 17:01] LABS: LDL Cholesterol Direct 111 mg/dL
[2024-07-23 17:40] LABS: Hemoglobin A1C 8.5 % (<5.7)
[2024-07-23 23:13] LABS: Free T4 Free Thyroxine Reflex 1.46 ng/dL (0.78-2.19)
[2024-07-24 00:18] LABS: Total Triiodothyronine (T3) 1.36 NG/ML (0.97-1.69)
== END 2024-07-23 15:43 | disposition home or self-care (01) ==
LOC: ANHLAB 15:42
PROVIDERS: PCP Family Medicine; Visit Provider Family Medicine
DX: E78.2 Mixed hyperlipidemia (principal); Z00.00 Encounter for general adult medical examination without abnormal findings; E03.9 Hypothyroidism, unspecified; R74.8 Abnormal levels of other serum enzymes; N18.30 Chronic kidney disease, stage 3 unspecified; R53.83 Other fatigue; E11.9 Type 2 diabetes mellitus without complications
CPT/HCPCS: 36415; 80048; 80061; 80076; 83036; 84439; 84443; 84480; 85025; 85055

== ENCOUNTER 2024-08-15 13:57 | Outpatient (CLI) | payer MEDICARE, SELFPAY ==
--- OUTSIDE RECORDS SUMMARY | 2024-08-15 14:02 | XMS_ITS | Patient Health Summary ---
Author Organization [facility] Address [address] [place] [address] Care Team Providers Care Contract Modeler Name Role Phone Ericka Colon MD Primary Care Provider [phone] Note from [facility],non-owned Affiliates and Associated Physician Practices is amultiple site organization consisting of ambulatory clinics and hospital sitesin [place], [place], [place] and [place]. This disclosure is being madepursuant to the Care Everywhere program and may not contain all information available regarding this patient. Last updated 18.[facility] Social History Tobacco Use Types Packs/Day Years Used Date Smoking Tobacco: Never Assessed Sex and Gender Information Value Date Recorded Sex Assigned at Not on file Gender Identity Not on file Sexual Orientation Not on file Procedures * MRI BREAST BILAT WWO CONTRAST(Performed 05/03/2013) * CREATININE BLOOD - POCT (IP) [facility](Performed 05/03/2013) Results * MRI BREAST BILAT WWO CONTRAST (05/03/2013 12:29 PM CORRECTIONAL CAPTAIN) Anatomical Region Laterality Modality Breast Bilateral Other Addenda Addendum by Yehuda Gongora MD on 05/10/2013 4:24 PM CORRECTIONAL CAPTAIN ADDENDUM: An addendum is being issued to this original report, as the formal pathology report from [facility] has now been made available. The pathology [...] * (ABNORMAL) CREATININE BLOOD - POCT (IP) [facility] (05/03/2013) Creatinine POCT 1.57(A) 0.3 - 1.3 mg/dL [facility] eGFR POCT 36(A) 60 ml/min [facility] 05/03/2013 Mariaelena Aceves MD LAB - POINT OF CA RE ORDERABLES [facility] Care Teams Contract Modeler Relationship Specialty Start Date End Date Ericka Colon MD [address] [place] [address] PCP - General 09/16/16
--- OUTSIDE RECORDS SUMMARY | 2024-08-15 14:02 | XMS_ITS | Referral Summary ---
Author Organization [facility] Address [address] [place] [address] Care Team Providers Care Toe Stapler Name Role Phone Ericka Colon MD Primary Care Provider [phone] Source Comments [facility] Affiliates and Associated Physician Practices is amultiple site organization consisting of ambulatory clinics and hospital sitesin [place], [place], [place] and [place]. This disclosure is being madepursuant to the [...] of Treatment Not on file Care Teams Toe Stapler Relationship Specialty Start Date End Date Ericka Colon MD [address] [place] [address] PCP - General 09/16/16
--- OUTSIDE RECORDS SUMMARY | 2024-08-15 14:02 | XMS_ITS | Clinical Summary ---
Author Organization [facility] Address [address] [place] [address] Care Team Providers Care Equipment Processer Storage Name Role Phone Ericka Colon MD Primary Care Provider [phone] Source Comments [facility],non-owned Affiliates and Associated Physician Practices is amultiple site organization consisting of ambulatory clinics and hospital sitesin [place], [place], [place] and [place]. This disclosure is being madepursuant to the Care Everywhere program and may not contain all information available regarding this patient. Last updated 18.[facility] [employer] Social History Tobacco Use Types Packs/Day Years [...] age to complete this topic Care Teams Equipment Processer Storage Relationship Specialty Start Date End Date Ericka Colon MD [address] [place] [address] PCP - General 09/16/16
[2024-08-15 15:26] LABS: Iron 77 ug/dL (37-170)
[2024-08-15 15:35] LABS: Percent Iron Saturation 18 % (20-50)
[2024-08-15 15:58] LABS: Hepatitis B Surface Antigen Negative (Negative)
[2024-08-15 16:04] LABS: HAV RESULT Negative (Negative); Hepatitis B Core IgM Result Negative (Negative)
[2024-08-15 16:16] LABS: Hepatitis C Virus Antibody Negative (Negative)
[2024-08-17 05:23] LABS: Hepatitis A Antibody Total REACTIVE (NON-REACTIVE)
[2024-08-17 15:32] LABS: Immunoglobulin A 265 mg/dL (70-320); TTG IGA AB <1.0 U/mL
[2024-08-18 23:03] LABS: Actin Antibody (IgG) <20 U (<20)
[2024-08-19 02:57] LABS: Alpha-1-Antitrypsin, QN 176 mg/dL (83-199); Ceruloplasmin 25 mg/dL (14-48)
[2024-08-20 08:38] LABS: Alpha Fetoprotein Tumor Marker 5.8 ng/mL
== END 2024-08-15 13:58 | disposition home or self-care (01) ==
LOC: ANHLAB 13:59
PROVIDERS: PCP Family Medicine; Visit Provider Nurse Practitioner
DX: K74.60 Unspecified cirrhosis of liver (principal); R74.8 Abnormal levels of other serum enzymes; K75.81 Nonalcoholic steatohepatitis (NASH)
CPT/HCPCS: 36415; 80074; 82103; 82105; 82390; 82728; 82784; 83540; 83550; 86038; 86039; 86364; 86708

== ENCOUNTER 2024-09-03 07:56 | Outpatient (CLI) | payer MEDICARE, SELFPAY ==
--- NOTE | ~2024-09-03 | US_ITS ---
Limited ABDOMINAL ULTRASOUND (Doppler ultrasound interrogation techniques used as needed for this exa m.) Ordering provider: Odessa Kelly APRN History: . possible cirrhosis, check hepatic vasculature as w . Comparison: None. FINDINGS: PANCREAS: Normal echotexture and size. PORTAL VEIN: Hepatopedal flow demonstrated. LIVER: Normal size and increased echotexture. The liver measures 16.3 cm. Anechoic lesion seen in the left lobe measuring 0.7 x 0.7 x 0.6 cm most likely a cyst. Otherwise, No focal hepatic lesions or pe rihepatic fluid collections are identified. BILIARY DUCTS: No intra or extrahepatic biliary dilation. Common bile duct measures 2.8 mm in diamete r which is normal for patient's age. GALLBLADDER: Cholelithiasis. Stone measures 1 x 1 x 0.4 cm. No sludge, gallbladder wall thickening or pericholecystic fluid. The wall thickness is 1.5 mm. Negative sonographic Fulton's sign. FREE FLUID: None visualized within the upper abdomen. IMPRESSION: Fat infiltration of the liver. Cholelithiasis. Otherwise, normal limited abdominal ultrasound. Reviewed, dictated and finalized at location A. IMPRESSION: Fat infiltration of the liver. Cholelithiasis. Otherwise, normal limited abdomi nal ultrasound.
--- OUTSIDE RECORDS SUMMARY | 2024-09-03 08:06 | XMS_ITS | Referral Summary ---
Author Organization [facility] Address [address] [place] [address] Care Team Providers Care Mold Sheet Cleaner Name Role Phone Ericka Colon MD Primary Care Provider [phone] Source Comments [facility],non-[facility] Affiliates and Associated Physician Practices is amultiple site organization consisting of ambulatory clinics and hospital sitesin [place], [place], [place] and [place]. This disclosure is being madepursuant to the Care Everywhere program and may not contain all information available regarding this patient. Last updated 18.[facility] Social History Tobacco Use Types Packs/Day Years Used Date Smoking Tobacco: Never Assessed Sex and Gender Information Value Date Recorded Sex Assigned at Not on file Gender Identity Not on file Sexual Orientation Not on file Plan of Treatment Not on file Care Teams Mold Sheet Cleaner Relationship Specialty Start Date End Date Ericka Colon MD [address] [place] [address] PCP - General 09/16/16
--- OUTSIDE RECORDS SUMMARY | 2024-09-03 08:06 | XMS_ITS | Referral Summary ---
Author Organization [facility] Address [address] [place] [address] Phone Care Team Providers Care Condemnation Engineer Name Role Phone Ericka Colon MD Primary Care Provider [phone] Jevon Colindres MD Unavailable [phone] Allergies No known active allergies Medications [...] TABLET BY MOUTH DAILY11/22/2013Continue 2013 Active omega 8-bnn-mfs-fish oil (FISH OIL) 100-160-1,000 mg capsule 07/12/2017Fish oil, po solid 300-1000mg CapsulePOdailyCurrent Medication 2017 Active fenofibrate nanocrystallized (TRICOR,TRIGLIDE) 145 mg tablet 2017 Active gabapentin (NEURONTIN) 300 mg capsule Take 300 mg by mouth 3 (three) times a day. Acti ve vit D3-vit Z-ivkxvhezq-gotl [phone] vrbo-mms-yx-mg tablet Take by mouth. 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 Gender Identity Not on file Sexual Orientation Not on file Last Filed Vital Signs Vital Sign Reading Time Taken Comments Blood Pressure 97/67 01/10/2020 1:57 PM CDT Pulse 93 01/10/2020 1:57 PM CDT Temperature 36.9 C (98.5 F) 01/10/2020 1:57 PM CDT Respiratory Rate 18 01/10/2020 1:57 PM CDT Oxygen Saturation 97% 01/10/2020 1:57 PM CDT Inhaled Oxygen Concentration - - Weight 96.6 kg (213 lb) 01/10/2020 1:57 PM CDT Height 157.5 cm (5' 2 ) 01/10/2020 1:57 PM CDT Body Mass Index 38.96 01/10/2020 1:57 PM CDT Plan of Treatment Not on file Insurance [employer] MEDICARE Care Teams Condemnation Engineer Relationship Specialty Start Date End Date Ericka Colon MD PCP - General Family Medicine 04/11/18 Jevon Colindres MD Medical Oncologist/Measurer Machine Hematology and Oncology 10/05/18
--- OUTSIDE RECORDS SUMMARY | 2024-09-03 08:06 | XMS_ITS | Patient Health Summary ---
Author Organization [facility] Address [address] [place] [address] Care Team Providers Care Steam Turbine Assembler Name Role Phone Ericka Colon MD Primary Care Provider [phone] Note from [facility],non-owned Affiliates and Associated Physician Practices is amultiple site organization consisting of ambulatory clinics and hospital sitesin [place], [place], [place] and [place]. This disclosure is being madepursuant to the Care Everywhere program and may not contain all information available regarding this patient. Last updated 18.[facility] Social History Tobacco Use Types Packs/Day Years Used Date Smoking Tobacco: Never Assessed Sex and Gender Information Value Date Recorded Sex Assigned at Not on file Gender Identity Not on file Sexual Orientation Not on file Procedures * MRI BREAST BILAT WWO CONTRAST(Performed 05/03/2013) * CREATININE BLOOD - POCT (IP) [facility](Performed 05/03/2013) Results * MRI BREAST BILAT WWO CONTRAST (05/03/2013 12:29 PM TUBE OPERATOR) Anatomical Region Laterality Modality Breast Bilateral Other Addenda Addendum by Yehuda Gongora MD on 05/10/2013 4:24 PM TUBE OPERATOR ADDENDUM: An addendum is being issued to this original report, as the formal pathology report from [facility] has now been made available. The [...] * (ABNORMAL) CREATININE BLOOD - POCT (IP) [facility] (05/03/2013) Creatinine POCT 1.57(A) 0.3 - 1.3 mg/dL [facility] eGFR POCT 36(A) 60 ml/min [facility] 05/03/2013 Mariaelena Aceves MD LAB - POINT OF CA RE ORDERABLES [facility] Care Teams Steam Turbine Assembler Relationship Specialty Start Date End Date Ericka Colon MD [address] [place] [address] PCP - General 09/16/16
--- OUTSIDE RECORDS SUMMARY | 2024-09-03 08:06 | XMS_ITS | Clinical Summary ---
Author Organization [facility] Address [address] [place] [address] Phone Care Team Providers Care Bias Cutter Helper Name Role Phone Ericka Colon MD Primary Care Provider [phone] Jevon Colindres MD Unavailable [phone] Allergies No known active allergies Medications [...] TABLET BY MOUTH DAILY11/22/2013Continue 2013 Active omega 7-zzi-sez-fish oil (FISH OIL) 100-160-1,000 mg capsule 07/12/2017Fish oil, po solid 300-1000mg CapsulePOdailyCurrent Medication 2017 Active fenofibrate nanocrystallized (TRICOR,TRIGLIDE) 145 mg tablet 2017 Active gabapentin (NEURONTIN) 300 mg capsule Take 300 mg by mouth 3 (three) times a day. Acti ve vit D3-vit Z-vbfigemau-ftoy [phone] xcpm-dpo-re-mg tablet Take by mouth. 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
--- OUTSIDE RECORDS SUMMARY | 2024-09-03 08:06 | XMS_ITS | Clinical Summary ---
Author Organization [facility] Address [address] [place] [address] Care Team Providers Care Record Producer Name Role Phone Ericka Colon MD Primary Care Provider [phone] Source Comments [facility],non-owned Affiliates and Associated Physician Practices is amultiple site organization consisting of ambulatory clinics and hospital sitesin [place], [place], [place] and [place]. This disclosure is being madepursuant to the Care Everywhere program and may not contain all information available regarding this patient. Last updated 18.[facility] Social History Tobacco Use Types Packs/Day Years [...] age to complete this topic Care Teams Record Producer Relationship Specialty Start Date End Date Ericka Colon MD [address] [place] [address] PCP - General 09/16/16
== END 2024-09-03 07:57 | disposition home or self-care (01) ==
PROVIDERS: PCP Family Medicine; Visit Provider Nurse Practitioner
DX: R74.8 Abnormal levels of other serum enzymes (principal); K76.0 Fatty (change of) liver, not elsewhere classified; K80.20 Calculus of gallbladder without cholecystitis without obstruction
CPT/HCPCS: 76705

== ENCOUNTER 2025-01-29 15:44 | Outpatient (CLI) | payer MEDICARE, SELFPAY ==
--- OUTSIDE RECORDS SUMMARY | 2025-01-29 15:49 | XMS_ITS | Clinical Summary ---
Author Organization [facility] Address [address] [place] [address] Phone Care Team Providers Care Silverware Assembler Name Role Phone Ericka Colon MD Primary Care Provider [phone] Jevon Colindres MD Unavailable [phone] Allergies No known active allergies Medications meloxicam [...] TABLET BY MOUTH DAILY11/22/2013Continue 2013 Active omega 7-aed-cxm-fish oil (FISH OIL) 100-160-1,000 mg capsule 07/12/2017Fish oil, po solid 300-1000mg CapsulePOdailyCurrent Medication 2017 Active fenofibrate nanocrystallized (TRICOR,TRIGLIDE) 145 mg tablet 2017 Active gabapentin (NEURONTIN) 300 mg capsule Take 300 mg by mouth 3 (three) times a day. Acti ve vit D3-vit J-kkysnpvya-fdlf [phone] uati-gtp-uv-mg tablet Take by mouth. 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
--- OUTSIDE RECORDS SUMMARY | 2025-01-29 15:49 | XMS_ITS | Clinical Summary ---
Author Organization [facility] Address [address] [place] [address] Care Team Providers Care Vp Strategy Name Role Phone Ericka Colon MD Primary Care Provider [phone] Source Comments [facility] Affiliates and Associated Physician Practices is amultiple site organization consisting of ambulatory clinics and hospital sitesin [place], [place], [place] and [place]. This disclosure is being madepursuant to the Care Everywhere program and may not contain all information available regarding this patient. Last updated 18.[facility] [employer] Social History Tobacco Use Types Packs/Day Years Used Date Smoking Tobacco: Never Assessed Comments Unknown Sex and Gender Information Value Date Recorded Sex Assigned at Not on file Legal Sex Female 6:41 PM TIER IN Gender Identity Not on file Sexual Orientation [...] VACCINE ( - 2023-2 5 season) 2024 DEPRESSION SCREENING 06/27/2024 INFLUENZA VACCINE (#1) 2025 Respiratory Syncytial Virus (RSV) Vaccine Pt: or [...] to complete this topic MENINGOCOCCAL (Group B) VACC INE SHARED DECISION-MAKING Aged Out No longer eligibl e based on patient's age to complete this topic MENINGOCOCCAL GROUPS A/C/Y/W VACCINE Aged Out No longer eligible b ased on patient's age to complete this topic Insurance AET[employer] Care Teams Vp Strategy Relationship Specialty Start Date End Date Ericka Colon MD [address] [place] [address] PCP - General 09/16/16
--- OUTSIDE RECORDS SUMMARY | 2025-01-29 15:49 | XMS_ITS | Referral Summary ---
Author Organization [facility] Address [address] [place] [address] Phone Care Team Providers Care Cyber Defense Analyst Name Role Phone Ericka Colon MD Primary Care Provider [phone] Jevon Colindres MD Unavailable [phone] Allergies No known active allergies Medications meloxicam [...] TABLET BY MOUTH DAILY11/22/2013Continue 2013 Active omega 5-oxx-zoj-fish oil (FISH OIL) 100-160-1,000 mg capsule 07/12/2017Fish oil, po solid 300-1000mg CapsulePOdailyCurrent Medication 2017 Active fenofibrate nanocrystallized (TRICOR,TRIGLIDE) 145 mg tablet 2017 Active gabapentin (NEURONTIN) 300 mg capsule Take 300 mg by mouth 3 (three) times a day. Acti ve vit D3-vit D-cosmrysoi-uttl [phone] fxbr-cwc-lp-mg tablet Take by mouth. 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
[2025-01-29 16:50] LABS: Hematocrit 40.9 % (37.0-47.0); Hemoglobin 13.5 g/dL (12.0-15.0); Immature Granulocyte Percent A 0.9 % (0-0.5); Lymphocytes Absolute Auto 1.94 K/mm3 (0.9-3.2); Mean Corpuscular HGB Conc 33.0 g/dl (32-36); Mean Corpuscular Hemoglobin 29.5 pg (26-34); Mean Corpuscular Volume 89.5 fl (80-100); Nucleated Red Blood Cells Absolute Auto 0.000 K/mm3 (0.0-0.012); Nucleated Red Blood Cells Perc 0.0 % (0.0-0.2); Platelet Count Result 134 k/mm3 (150-375); Red Blood Count 4.57 M/mm3 (4.2-5.4); White Blood Count 6.6 K/mm3 (4.5-10.0)
[2025-01-29 16:59] LABS: Alanine Aminotransferase 61 U/L (6-35); Albumin Level 4.4 g/dL (3.5-5.1); Alkaline Phosphatase 60 U/L (38-126); Anion Gap 11 mmol/L (4-12); Aspartate Amino Transferase 68 U/L (14-36); Bilirubin,Total 0.5 mg/dL (0.2-1.3); Blood Urea Nitrogen 23 mg/dL (7-17); Calcium 10.0 mg/dL (8.4-10.2); Carbon Dioxide 23 mmol/L (22-30); Chloride 104 mmol/L (98-107); Cholesterol 215 mg/dL (0-200); Estimated Glomerular Filt Rate 52; Glucose 171 mg/dL (65-110); HDL Direct 31 mg/dL; Potassium 4.5 mmol/L (3.4-5.0); Sodium 138 mmol/L (137-145); Total Protein 7.6 g/dL (6.3-8.2); Triglycerides 323 mg/dL (<150)
[2025-01-29 17:00] LABS: INR 1.0; Prothrombin Time 13.4 Seconds (11.1-14.7)
[2025-01-29 17:04] LABS: Hemoglobin A1C 7.0 % (<5.7)
[2025-01-29 17:12] LABS: Immunoglobulin G 909 mg/dL (700-1600)
[2025-01-29 17:22] LABS: MALB Creatinine Ratio < 10.2 mg/g (0-30)
[2025-01-29 17:30] LABS: Thyroid Stimulating Hormone Reflex 3.700 uIU/mL (0.465-4.68)
[2025-02-01 01:08] LABS: ALT (SGPT) P5P 55 IU/L (0-40); AST (SGOT) P5P 59 IU/L (0-40); Alpha 2-Macroglobulins, Qn 131 mg/dL (110-276); Bilirubin, Total 0.3 mg/dL (0.0-1.2); Cholesterol, Total 210 mg/dL (100-199); GGT 99 IU/L (0-60); Glucose 159 mg/dL (70-99); Triglycerides 328 mg/dL (0-149)
== END 2025-01-29 15:45 | disposition home or self-care (01) ==
LOC: ANHLAB 15:46
PROVIDERS: PCP Family Medicine; Referring Provider Family Medicine; Visit Provider Nurse Practitioner
DX: R74.8 Abnormal levels of other serum enzymes (principal); K75.81 Nonalcoholic steatohepatitis (NASH); E78.2 Mixed hyperlipidemia; E11.9 Type 2 diabetes mellitus without complications; E55.9 Vitamin D deficiency, unspecified; R53.83 Other fatigue; E03.9 Hypothyroidism, unspecified
CPT/HCPCS: 36415; 80053; 80061; 82043; 82172; 82247; 82306; 82465; 82784; 82947; 82977; 83010; 83036; 83883; 84443; 84450; 84460; 84478; 85025; 85610; 86376